=== PATIENT | male | born 1985 | race Caucasian/White ===

== ENCOUNTER 2016-11-26 14:45 | Emergency (ER) | payer OTHER ==
[~2016-11-26] VITALS: Ht 175.3 cm; Wt 120.0 kg
[~2016-11-26 14:45] MED LIST: ASPI81TA28 PO
[2016-11-26 14:56] VITALS: TEMP 36.7; Ht 175.3 cm; Wt 120.0 kg
--- NOTE | 2016-11-26 15:49 | DIAGNOSTIC IMAGING REPORT ---
SINGLE VIEW CHEST CLINICAL HISTORY: Atypical chest pain. FINDINGS: An AP, portable, upright chest radiograph is obtained. No prior studies are available for comparison at the time of dictation. The examination is degraded by portable technique and patient rotation. The cardiomediastinal silhouette is unremarkable. There are low lung volumes with bibasilar atelectasis. The lungs and pleural spaces are otherwise clear. No pneumothorax is seen. The bony thorax is grossly intact. IMPRESSION: Low lung volumes with no acute cardiopulmonary abnormality. Electronically signed by: Cresencio Morris M.D. 11/26/2016 3:47 PM Dictated Date/Time: 11/26/2016 3:46 PM
[2016-11-26 15:51] VITALS: O2SAT 96
[2016-11-26 15:53] LABS: HEMATOCRIT 43.7 % (42-52); MEAN CELL VOLUME 77.8 fL (80-100); MEAN CORPUSCULAR HEMOGLOBIN 29.2 pg (25-34); MEAN CORPUSCULAR HGB CONC 37.5 g/dl (32-36); MEAN PLATELET VOLUME 11.8 fL (7.4-10.4); PLATELET COUNT 130 K/uL (130-400); RED BLOOD COUNT 5.62 M/uL (4.7-6.1); WHITE BLOOD COUNT 6.94 K/uL (4.8-10.8)
[2016-11-26 16:04] LABS: PROTHROMBIN TIME (PATIENT) 10.7 SECONDS (9.0-12.0)
[2016-11-26] MEDS ORDERED: MoRPHine SULFATE 4 MG/ML 1 ML CARP\\VIAL IV STA (16:10)
[2016-11-26] MEDS ORDERED: ASPIRIN 324 MG CHEW PO STA (16:10)
[2016-11-26] MEDS ORDERED: NITROGLYCERIN OINT 2% 1GM PACKET EXT STA (16:10)
[2016-11-26] MEDS ORDERED: ONDANSETRON INJ 2 MG/ML 2 ML VIAL IV STA (16:10)
[2016-11-26 16:19] LABS: ALT/SGPT 81 U/L (12-78); AST/SGOT 28 U/L (15-37); BLOOD UREA NITROGEN 15 mg/dl (7-18); BUN/CREATININE RATIO 15.5 (10-20); CALCIUM 8.9 mg/dl (8.5-10.1); CARBON DIOXIDE 25 mmol/L (21-32); CHLORIDE 107 mmol/L (98-107); CREATININE 0.99 mg/dl (0.60-1.40); GLUCOSE 90 mg/dl (70-99); POTASSIUM 3.8 mmol/L (3.5-5.1); SODIUM 141 mmol/L (136-145)
[2016-11-26 16:23] LABS: ALB/GLOB RATIO 1.2 (0.9-2); ALKALINE PHOSPHATASE 68 U/L (45-117)
[2016-11-26] MEDS ORDERED: NITROGLYCERIN OINT 2% 1GM PACKET ONE (16:58)
[2016-11-26] MEDS ORDERED: OPTIRAY 320 IV PRN (18:30)
--- NOTE | 2016-11-26 19:07 | DIAGNOSTIC IMAGING REPORT ---
CT ANGIOGRAPHY OF THE CHEST, PULMONARY EMBOLUS PROTOCOL CLINICAL HISTORY: Chest and back pain. Dyspnea. COMPARISON STUDY: Chest radiograph performed earlier today. TECHNIQUE: Following IV administration of 100 mL of Optiray-320, helical axial images of the chest were obtained utilizing the pulmonary embolus protocol. Maximal intensity projections and sagittal and coronal reformats were viewed on an independent 3D workstation. IV contrast was administered without complication. CT DOSE: 846.78 mGy.cm FINDINGS: No pulmonary emboli are identified. The heart is borderline enlarged. There is mild dilatation of the ascending aorta which measures approximately 4.1 cm at the level the sinuses of Valsalva. No thoracic aortic dissection is identified although opacification is suboptimal. There is no pericardial effusion. There is mild dilatation of the central pulmonary arteries. No consolidation is present. There is no pneumothorax or pleural effusion. Ground glass opacities represent atelectasis. There is fatty infiltration of the liver. Suspected mild splenomegaly is partially imaged on this exam. There is a splenule. A few suspected sebaceous cysts within the chest and back are noted IMPRESSION: 1. No pulmonary emboli identified. 2. Suspected mild cardiomegaly. Nonemergent cardiology consultation might be considered. 3. Mild dilatation of the aortic root at the level the sinuses of Valsalva, measuring approximately 4.1 cm. 4. Mild dilatation of the central pulmonary arteries. 5. Fatty liver. 6. Mild splenomegaly, partially imaged on this exam. Electronically signed by: Piyush Gregory M.D. 11/26/2016 7:06 PM Dictated Date/Time: 11/26/2016 6:56 PM
--- NOTE | 2016-11-26 19:38 | EMERGENCY ROOM VISIT NOTE ---
History First contact with patient: 15:53 Chief Complaint: CHEST PAIN Stated Complaint: CHEST PAIN, BACK PAIN, LIGHT HEADED Nursing Triage Summary: Pt states at 1:30 in work patient started having mid chest pain, standing (states "I wasn't really doing anything", sweaty, SOB and back pain. History of Present Illness The patient is a 31 year old male who presents to the Emergency Room via private vehicle accompanied by with complaints of "chest pain, back pain, lightheaded". The patient states that today around 1:30 PM, he was at his place of employment, which is [employer] and while standing he felt as if someone punched him in the chest, and then develop lightheadedness, shortness of breath, and pain radiating in between his shoulder blades. He rates the pain as a 3/10. He states that he is unable to get comfortable secondary to the discomfort in the back. He states that the anterior chest pain as substernal, feels like an arrow going straight through to his back. He notes it is worse with inspiration. He notes he has had a similar episode while at his house that involved pain the left arm. He denies any asthma history, or COPD history. He denies any hypertension, heart troubles , abdominal pain, chills, syncope, speech troubles, numbness or tingling in the extremities. Review of Systems A complete 10-point Review of Systems was discussed with the patient, with pertinent positives and negatives listed in the History of Present Illness. All remaining Review of Systems questions can be considered negative unless otherwise specified. Past Medical/Surgical History Stomach problems Family History Diabetes, high blood pressure, cancer, lung disease. Social History Smoking Status: Never Smoker Social History: Patient was at home with and 2 children. He admits to tobacco and alcohol use. Current/Historical Medications No Active Prescriptions or Reported Meds Allergies Coded Allergies: No Known Allergies (Verified , 08/05/16) Physical Exam Vital Signs Date Time Temp Pulse Resp B/P Pulse Ox O2 Delivery O2 Flow Rate FiO2 11/26/16 20:04 75 20 119/81 95 11/26/16 17:04 78 20 122/87 95 Room Air 11/26/16 16:30 85 11/26/16 15:51 96 Room Air 11/26/16 15:51 97 Room Air 3/15/17 14:56 36.7 88 16 138/90 96 Room Air Physical Exam VITAL SIGNS - Vital signs and nursing notes were reviewed. Patient is afebrile , normotensive, non-tachycardic and is saturating well on room air 96%. GENERAL -31-year-old male appearing his stated age who is in no acute distress. Communicates well with provider and answers questions appropriately. SKIN - Without rashes. No petechial rashes. HEAD - NC/AT. EYES - Sclera anicteric. Palpebral conjunctiva pink and moist with no injection noted. EARS - No deformities of external structures noted on gross examination bilaterally. NOSE - Midline and without cyanosis. No epistaxis or purulent drainage noted. MOUTH/OROPHARYNX - Without perioral cyanosis. Buccal mucosa pink and moist and without leukoplakia. LUNGS - Chest wall symmetric without accessory muscle use, intercostals retractions, or central cyanosis. Normal vesicular breath sounds CTA B/L. No wheezes, rales, or rhonchi appreciated. CARDIAC - RRR with S1/S2. No murmur, rubs, or gallops appreciated. There is reproducible anterior chest pain to palpation. ABDOMEN - Abdominal contour without pulsations or visible masses. BS normoactive all four quadrants. No tenderness, palpable masses, hepatosplenomegaly, or ascites noted. MUSCULOSKELETAL: There is minimal tenderness to palpation overlying the back. EXTREMITIES - No clubbing or peripheral cyanosis. No pretibial edema present. + 5/5 strength noted in UE/LE bilaterally. NEUROLOGIC - Cranial nerves II through XII grossly intact. Sensory intact to light touch throughout. Medical Decision & Procedures ER Provider Diagnostic Interpretation: SINGLE VIEW CHEST CLINICAL HISTORY: Atypical chest pain. FINDINGS: An AP, portable, upright chest radiograph is obtained. No prior studies are available for comparison at the time of dictation. The examination is degraded by portable technique and patient rotation. The cardiomediastinal silhouette is unremarkable. There are low lung volumes with bibasilar atelectasis. The lungs and pleural spaces are otherwise clear. No pneumothorax is seen. The bony thorax is grossly intact. IMPRESSION: Low lung volumes with no acute cardiopulmonary abnormality. Electronically signed by: Cresencio Morris M.D. 11/26/2016 3:47 PM Dictated Date/Time: 11/26/2016 3:46 PM FINDINGS: No pulmonary emboli are identified. The heart is borderline enlarged. There is mild dilatation of the ascending aorta which measures approximately 4.1 cm at the level the sinuses of Valsalva. No thoracic aortic dissection is identified although opacification is suboptimal. There is no pericardial effusion. There is mild dilatation of the central pulmonary arteries. No consolidation is present. There is no pneumothorax or pleural effusion. Ground glass opacities represent atelectasis. There is fatty infiltration of the liver. Suspected mild splenomegaly is partially imaged on this exam. There is a splenule. A few suspected sebaceous cysts within the chest and back are noted IMPRESSION: 1. No pulmonary emboli identified. 2. Suspected mild cardiomegaly. Nonemergent cardiology consultation might be considered. 3. Mild dilatation of the aortic root at the level the sinuses of Valsalva, measuring approximately 4.1 cm. 4. Mild dilatation of the central pulmonary arteries. 5. Fatty liver. 6. Mild splenomegaly, partially imaged on this exam. Laboratory Results 11/26/16 15:35 11/26/16 15:35 Test 11/26/16 15:35 11/26/16 17:44 Red Blood Count 5.62 M/uL (4.7-6.1) Mean Corpuscular Volume 77.8 fL (80-100) Mean Corpuscular Hemoglobin 29.2 pg (25-34) Mean Corpuscular Hemoglobin Concent 37.5 g/dl (32-36) RDW Standard Deviation 35.4 fL (36.4-46.3) RDW Coefficient of Variation 12.5 % (11.5-14.5) Mean Platelet Volume 11.8 fL (7.4-10.4) Prothrombin Time 10.7 SECONDS (9.0-12.0) Prothromb Time International Ratio 1.0 (0.9-1.1) Activated Partial Thromboplast Time 26.9 SECONDS (21.0-31.0) Partial Thromboplastin Ratio 1.0 D-Dimer < 190 ug/L FEU (0-500) Anion Gap 9.0 mmol/L (3-11) Est Creatinine Clear Calc Drug Dose 139.6 ml/min Estimated GFR () 118.0 Estimated GFR (Non- 101.8 BUN/Creatinine Ratio 15.5 (10-20) Calcium Level 8.9 mg/dl (8.5-10.1) Total Bilirubin 0.9 mg/dl (0.2-1) Aspartate Amino Transf (AST/SGOT) 28 U/L (15-37) Alanine Aminotransferase (ALT/SGPT) 81 U/L (12-78) Alkaline Phosphatase 68 U/L (45-117) Total Creatine Kinase 44 U/L (39-308) Creatine Kinase MB < 0.5 ng/ml (0.5-3.6) Creatine Kinase MB Ratio (0-3.0) Total Protein 7.7 gm/dl (6.4-8.2) Albumin 4.2 gm/dl (3.4-5.0) Globulin 3.5 gm/dl (2.5-4.0) Albumin/Globulin Ratio 1.2 (0.9-2) Bedside Troponin I 0.000 ng/ml (0-0.045) Medications Administered Medications (Trade) Dose Ordered Sig/Jose Maria Route Start Time Stop Time Status Last Admin Dose Admin Aspirin (Aspirin Chew) 324 mg NOW STAT PO 11/26/16 16:10 11/26/16 16:12 DC 11/26/16 17:05 324 MG Morphine Sulfate (MoRPHine SULFATE INJ) 4 mg NOW STAT IV 11/26/16 16:10 11/26/16 16:12 DC 11/26/16 17:06 4 MG Ondansetron HCl (Zofran Inj) 4 mg NOW STAT IV 11/26/16 16:10 11/26/16 16:12 DC 11/26/16 17:05 4 MG Nitroglycerin (Nitroglycerin 2% Oint) 1 inch [facility] .ROUTE 11/26/16 16:58 11/26/16 17:02 DC 11/26/16 16:58 1 INCH Medical Decision Patient was seen and evaluated as above. After obtaining a thorough history and physical examination he was provided aspirin, nitroglycerin over concern for acute coronary syndrome. IV access was initiated and the above workup was performed. CBC reveals no leukocytosis or concerning anemia. Coagulation studies within normal limits, d-dimer was negative, CMP reveals normal electrolytes, kidney function was slight elevation of ALT at 81. This is elevated with a prior comparison of within normal limits in the year of 2004. Chest x-ray unremarkable for acute process. Patient's EKG reveals sinus rhythm with first-degree AV block, rate of 79 bpm. This was repeated 2 more times to ensure no change. There was what appeared to be slight elevation of ST segment in lead 2, however after further evaluation of this it appears he may have [place] depression which has been stable throughout all the EKGs. With 2 negative troponins I do not suspect acute coronary syndrome at this time. With a negative d-dimer I did tell the patient that CAT scan of the chest is likely not warranted. After thorough discussion he did decide to pursue the scan. CT scan results as above. Negative for pulmonary emboli. He was educated upon these findings. The patient may be experiencing anxiety and this was discussed with him. He appears to be under a degree of stress at this time. I did elect to discuss the case with my attending, and it was recommended that I call the on -call protective services social worker as there was mild dilatation of the aortic root. I did speak with Dr. Patterson about the case, and it was felt that the minor dilatation is actually a normal variant. I will have the patient follow-up in the outpatient setting. The patient was educated upon today's findings, had questions answered prior to discharge, was educated upon worrisome symptoms which to return, and was discharged home in good condition. He is to follow-up with the protective services social worker and family doctor as soon as possible. He is to return here if worsening or for any new/concerning symptoms. In the evaluation and treatment this patient the following differential diagnoses were entertained: ACS, CO, PE, anxiety, costochondritis, esophagitis, GERD, among others. Impression Primary Impression: Substernal precordial chest pain Departure Information Dispostion Home / Self-Care Condition GOOD Prescriptions No Active Prescriptions or Reported Meds Referrals Era Davenport M.D. (PCP) Vincent Patterson D.O. Patient Instructions My [facility] Additional Instructions You were seen in the emergency department for chest pain. Lab work and testing as helped rule out emergent causes. Please follow-up regarding your lab work and imaging as we discussed. It is recommended he follow-up with your family doctor and cardiology regarding today's visit. Please call the protective services social worker above to schedule follow-up. (Dr. Patterson) Please also call your family doctor to schedule follow-up. Please return to the emergency department with any new/concerning symptoms.
[2016-11-26 20:04] VITALS: BP 119/81; PULSE 75; O2SAT 95
== END 2016-11-26 20:05 | disposition home or self-care (01) ==
LOC: C.EDB 14:46
DX: R07.2 Precordial pain (principal); F17.200 Nicotine dependence, unspecified, uncomplicated